=== PATIENT | male | born 1950 | race Caucasian/White ===

== ENCOUNTER 2016-12-05 21:13 | Emergency (ER) | payer MEDICARE, MEDICAID ==
[~2016-12-05] VITALS: Ht 177.8 cm; Wt 90.0 kg
[~2016-12-05 21:13] MED LIST: IBUP400T20 PO
[2016-12-05] MEDS ORDERED: TETANUS/DIPHTHERIA TOXOID ADULT 0.5 ML VIAL IM ONE (21:30)
[2016-12-05] MEDS ORDERED: SODIUM CHLORIDE 0.9% FLUSH 5 ML FLUSH IVF PRN (21:30)
[2016-12-05 21:32] VITALS: BP 164/72; PULSE 110; RESP 18; TEMP 98.9; O2SAT 99
--- NOTE | 2016-12-05 21:36 | PD ---
HPI Chief Complaint: Fall Time Seen by Provider: 21:19 Travel History International Travel<30 days: No Contact w/Intl Traveler<30days: No Traveled to known affect area: No History of Present Illness HPI 66-year-old male was brought in by EMS with history of head injury after he fell and injured the left side of his forehead. There was questionable LOC. Patient was significantly intoxicated. Bystanders called 911. He was brought in with a c-collar. Patient is significantly intoxicated with he is unable to give any history. He is talking but not making much sense. His head is bandaged. No other external injuries. He was tachycardic and hypertensive upon arrival. [facility] Past Medical History Narrative Medical List of his past medical, surgical, social and family history was reviewed from the nursing note. 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 Reported Meds & Prescriptions Reported Meds & Active Scripts Active No Active Prescriptions or Reported Medications Narrative Medication List of his home medications reviewed from the nursing note. Review of Systems Except as stated in HPI: all other systems reviewed are Neg Physical Exam Narrative GENERAL: Intoxicated, no obvious distress, C-collared SKIN: Warm and dry. Laceration on the left side of the forehead HEAD: Atraumatic. Normocephalic. EYES: Pupils equal and round. No scleral icterus. No injection or drainage. ENT: No nasal bleeding or discharge. Mucous membranes pink and moist. NECK: Trachea midline. No JVD. CARDIOVASCULAR: Regular rate and rhythm. No murmur appreciated. RESPIRATORY: No accessory muscle use. Clear to auscultation. Breath sounds equal bilaterally. GASTROINTESTINAL: Abdomen soft, non-tender, nondistended. Hepatic and splenic margins not palpable. MUSCULOSKELETAL: No obvious deformities. No clubbing. No cyanosis. No edema. NEUROLOGICAL: Moderately intoxicated. No obvious cranial nerve deficits. Motor grossly within normal limits. Normal speech. PSYCHIATRIC: Appropriate mood and affect; insight and judgment normal. Data Data Last Documented VS Vital Signs Date Time Temp Pulse Resp B/P Pulse Ox O2 Delivery O2 Flow Rate FiO2 12/06/16 03:00 100 16 128/69 98 Room Air 12/05/16 21:32 98.9 Orders Complete Blood Count With Diff (12/05/16 21:19) Prothrombin Time / Inr (Pt) (12/05/16 21:19) Act Partial Throm Time (Ptt) (12/05/16 21:19) Type And Screen (12/05/16 21:19) Ct Brain W/O Iv Contrast(Rout) (12/05/16 21:19) Ct Cerv Spine W/O Contrast (12/05/16 21:19) Iv Access Insert/Monitor (12/05/16 21:19) Ecg Monitoring (12/05/16 21:19) Oximetry (12/05/16 21:19) Oxygen Administration (12/05/16 21:19) Sodium Chloride 0.9% Flush (Ns Flush) (12/05/16 21:30) Comprehensive Metabolic Panel (12/05/16 21:19) Tetanus/Diphtheria Tox Adult (Tetanus/Di (12/05/16 21:30) Alcohol (Ethanol) (12/05/16 21:19) Lidocai-Epi 1%-1:100,000 Inj (Xylocaine- (12/05/16 21:45) Labs Laboratory Tests Test 12/05/16 20:50 White Blood Count 11.1 TH/MM3 Red Blood Count 4.90 MIL/MM3 Hemoglobin 14.7 GM/DL Hematocrit 43.9 % Mean Corpuscular Volume 89.5 FL Mean Corpuscular Hemoglobin 30.0 PG Mean Corpuscular Hemoglobin 33.5 % Concent Red Cell Distribution Width 14.3 % Platelet Count 248 TH/MM3 Mean Platelet Volume 8.1 FL Neutrophils (%) (Auto) 64.5 % Lymphocytes (%) (Auto) 27.4 % Monocytes (%) (Auto) 6.9 % Eosinophils (%) (Auto) 0.4 % Basophils (%) (Auto) 0.8 % Neutrophils # (Auto) 7.2 TH/MM3 Lymphocytes # (Auto) 3.0 TH/MM3 Monocytes # (Auto) 0.8 TH/MM3 Eosinophils # (Auto) 0.0 TH/MM3 Basophils # (Auto) 0.1 TH/MM3 CBC Comment DIFF FINAL Differential Comment Prothrombin Time 11.4 SEC Prothromb Time International 1.0 RATIO Ratio Activated Partial 26.1 SEC Thromboplast Time Sodium Level 140 MEQ/L Potassium Level 4.2 MEQ/L Chloride Level 102 MEQ/L Carbon Dioxide Level 26.5 MEQ/L Anion Gap 12 MEQ/L Blood Urea Nitrogen 7 MG/DL Creatinine 0.73 MG/DL Estimat Glomerular Filtration 107 ML/MIN Rate Random Glucose 105 MG/DL Calcium Level 8.5 MG/DL Total Bilirubin 0.1 MG/DL Aspartate Amino Transf 36 U/L (AST/SGOT) Alanine Aminotransferase 34 U/L (ALT/SGPT) Alkaline Phosphatase 82 U/L Total Protein 8.7 GM/DL Albumin 4.2 GM/DL Ethyl Alcohol Level 372 MG/DL Blood Type B POSITIVE Antibody Screen NEGATIVE Blood Bank Comment MDM Medical Decision Making Medical Screen Exam Complete: Yes Emergency Medical Condition: Yes Medical Record Reviewed: Yes Differential Diagnosis Intracranial bleed, cervical fracture Narrative Course 10:46 PM patient was given tetanus. The PA to care of the laceration. Please refer to his procedure note. Alcohol level is significantly high. He is here to sleep it off currently. Procedures EKG Prior to Arrival: No Diagnosis Primary Impression: Alcohol intoxication Qualified Code: F10.121 - Alcohol intoxication, with delirium Additional Impressions: Fall Qualified Code: W19.XXXA - Fall, initial encounter Head injury Qualified Code: S09.90XA - Head injury, initial encounter Facial laceration Qualified Code: S01.81XA - Facial laceration, initial encounter Scripts No Active Prescriptions or Reported Meds Charles Dyson MD Dec 05, 2016 21:36
--- NOTE | 2016-12-05 21:43 | RADRPT ---
EXAM DATE/TIME: 12/05/2016 21:29 [facility] COMPARISON: Report only CT BRAIN W/O CONTRAST, July 28, 2012, 13:10. INDICATIONS : Fall with head trauma. RADIATION DOSE: 28.89 CTDIvol (mGy) MEDICAL HISTORY : None SURGICAL HISTORY : Corneal transplant. Right shoulder surgery ENCOUNTER: Initial ACUITY: 1 day PAIN SCALE: 5/10 LOCATION: Bilateral cranial TECHNIQUE: Multiple contiguous axial images were obtained of the head. Using automated exposure control and adj ustment of the mA and/or kV according to patient size, radiation dose was kept as low as reasonably a chievable to obtain optimal diagnostic quality images. FINDINGS: CEREBRUM: The ventricles are normal for age. No evidence of midline shift, mass lesion, hemorrhage or acute in farction. No extra-axial fluid collections are seen. POSTERIOR FOSSA: The cerebellum and brainstem are intact. The 4th ventricle is midline. The cerebellopontine angle i s unremarkable. EXTRACRANIAL: The visualized portion of the orbits is intact. Left prosthetic eye. SKULL: The calvaria is intact. No evidence of skull fracture. CONCLUSION: No bleed or other acute intracranial abnormality. Mauri Palacios MD on December 05, 2016 at 21:40 Board Certified Radiologist. This report was verified electronically.
[2016-12-05] MEDS ORDERED: LIDOCAINE 1%/EPINEPHrine 1:100,000 SOLN 20 ML VIAL INFIL ONE (21:45)
--- NOTE | 2016-12-05 21:47 | RADRPT ---
EXAM DATE/TIME: 12/05/2016 21:29 [facility] COMPARISON: Report only CT CERVICAL SPINE W/O CONTRAST W 3D RECON, July 28, 2012, 13:10. INDICATIONS : Fall with head trauma and neck pain. RADIATION DOSE: 20.39 CTDIvol (mGy) MEDICAL HISTORY : None SURGICAL HISTORY : Corneal transplant. Right shoulder surgery. ENCOUNTER: Initial ACUITY: 1 day PAIN SCALE: 5/10 LOCATION: Bilateral neck TECHNIQUE: Volumetric scanning of the cervical spine was performed. Multiplanar reconstructions in the sagittal, coronal and oblique axial planes were performed. Using automated exposure control and adjustment o f the mA and/or kV according to patient size, radiation dose was kept as low as reasonably achievable to obtain optimal diagnostic quality images. FINDINGS: I. don't see an acute cortical break or trabecular disruption. Patient has chronic appearing endplate changes of C6, especially the inferior endplate. No subluxations. Other vertebral bodies have normal height. There is moderate disc space narrowing with uncovertebral and facet osteoarthritis at C4/C5 and C6/C7 . Milder findings are seen at the other levels. Epidural space and Juxtavertebral soft tissues are within normal limits. CONCLUSION: Chronic findings as above. No acute fracture or subluxation seen of the cervical spine. Mauri Palacios MD on December 05, 2016 at 21:43 Board Certified Radiologist. This report was verified electronically.
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
[2016-12-05 22:21] LABS: AUTOMATED NEUTROPHIL # 7.2 TH/MM3 (1.8-7.7); BASOPHIL # 0.1 TH/MM3 (0-0.2); BASOPHIL % 0.8 % (0.0-2.0); EOSINOPHIL % 0.4 % (0.0-4.0); HEMATOCRIT 43.9 % (39.0-51.0); HEMO FLAGS DIFF FINAL; LYMPH % 27.4 % (9.0-44.0); MEAN CELL VOLUME 89.5 FL (80.0-100.0); MEAN CORPUSCULAR HGB CONC 33.5 % (32.0-36.0); MONO % 6.9 % (0.0-8.0); NEUT % 64.5 % (16.0-70.0); PLATELET COUNT 248 TH/MM3 (150-450); RED CELL DISTRIBUTION WIDTH 14.3 % (11.6-17.2); WHITE BLOOD COUNT 11.1 TH/MM3 (4.0-11.0)
[2016-12-05 22:34] LABS: APTT (PATIENT) 26.1 SEC (24.3-30.1); PROTHROMBIN TIME - PATIENT 11.4 SEC (9.8-11.6)
[2016-12-05 22:45] LABS: ALKALINE PHOSPHATASE 82 U/L (45-117); ALT (GPT) 34 U/L (12-78); ANION GAP 12 MEQ/L (5-15); AST (GOT) 36 U/L (15-37); BICARBONATE 26.5 MEQ/L (21.0-32.0); BLOOD UREA NITROGEN 7 MG/DL (7-18); CHLORIDE 102 MEQ/L (98-107); GLOMERULAR FILTRATION RATE 107 ML/MIN (>89); POTASSIUM 4.2 MEQ/L (3.5-5.1); SODIUM (NA) 140 MEQ/L (136-145); TOTAL BILIRUBIN ADULT 0.1 MG/DL (0.2-1.0)
[2016-12-05 22:58] VITALS: BP 143/78; PULSE 100; RESP 18; O2SAT 99
[2016-12-06 03:00] VITALS: BP 128/69; PULSE 100; RESP 16; O2SAT 98
[2016-12-13] MEDS ORDERED: ASPI1TAB69 PO (08:51)
== END 2016-12-06 06:51 | disposition home or self-care (01) ==
LOC: NEPE 21:13 → NEPA 12-06 06:51
DX: S01.112A Laceration without foreign body of left eyelid and periocular area, initial encounter (principal); F10.121 Alcohol abuse with intoxication delirium; R00.0 Tachycardia, unspecified; I10 Essential (primary) hypertension; Z23 Encounter for immunization; Z72.0 Tobacco use; W19.XXXA Unspecified fall, initial encounter; Y99.8 Other external cause status
CPT/HCPCS: 12011; 70450; 72125; 80053; 80307; 85025; 85610; 85730; 86850; 86900; 86901; 90471; 90714

== ENCOUNTER → 2016-12-13 | Day surgery (SDC) | payer MEDICARE, MEDICAID ==
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
[~2016-12-13] VITALS: Ht 176.5 cm; Wt 83.8 kg
[~2016-12-13] MED LIST changes: +ACETAMINOPHEN 1000 MG/100 ML VIAL IV ONE; +ACETAMINOPHEN/HYDROcodone 325 MG/5 MG TAB ONE; +ACETAMINOPHEN/HYDROcodone 325 MG/5 MG TAB PO PRN; +ASPI1TAB69 PO; +BUPIVACAINE HCL PF 0.25% 30 ML VIAL ONE; +CHLORHEXIDINE GLUCONATE 4% SOLN 120 ML BTL TOP SCH; +DO NOT ADM ANY ANTICOAGULANT DRUGS XX PRN; +FAMOTIDINE 20 MG/2 ML VIAL ONE; -IBUP400T20 PO; +INSULIN HUMAN REGULAR 1,000 UNITS/10 ML VIAL SQ PRN; +KETOROLAC TROMETHAMINE 60 MG/2 ML (IM) VIAL IM ONE; +LACTATED RINGER'S 1000 ML IV SCH; +MEPERIDINE HCL 50 MG/ML VIAL IM PRN; +METOPROLOL TARTRATE 25 MG TAB PO PRN; +MIDAZOLAM HCL 2 MG/2 ML VIAL ONE; +ONDANSETRON HCL 4 MG/2 ML VIAL IV PUSH ONE; +ONDANSETRON ODT 4 MG TAB PO PRN; +PROPOFOL 200 MG/20 ML AMP IV ONE; +SODIUM CHLORID 0.9% 500 ML IV SCH; +ceFAZolin 2 GM PREMIX 50 ML IV SCH; +fentaNYL CITRATE 250 MCG/5 ML AMP ONE
[2016-12-13 08:56] VITALS: BP 167/96; PULSE 93; RESP 18; TEMP 98.2; O2SAT 98
[2016-12-13 09:14] LABS: AUTOMATED NEUTROPHIL # 3.9 TH/MM3 (1.8-7.7); BASOPHIL # 0.1 TH/MM3 (0-0.2); BASOPHIL % 0.9 % (0.0-2.0); EOSINOPHIL # 0.2 TH/MM3 (0-0.4); EOSINOPHIL % 2.9 % (0.0-4.0); HEMATOCRIT 37.1 % (39.0-51.0); HEMO FLAGS DIFF FINAL; LYMPH % 40.6 % (9.0-44.0); LYMPHOCYTE # 3.4 TH/MM3 (1.0-4.8); MEAN CELL VOLUME 90.1 FL (80.0-100.0); MEAN CORPUSCULAR HEMOGLOBIN 31.6 PG (27.0-34.0); MEAN CORPUSCULAR HGB CONC 35.1 % (32.0-36.0); MONO % 7.9 % (0.0-8.0); NEUT % 47.7 % (16.0-70.0); PLATELET COUNT 169 TH/MM3 (150-450); RED BLOOD COUNT 4.12 MIL/MM3 (4.50-5.90); RED CELL DISTRIBUTION WIDTH 14.1 % (11.6-17.2); WHITE BLOOD COUNT 8.3 TH/MM3 (4.0-11.0)
[2016-12-13 09:15] LABS: BLOOD, URINE NEG (NEG); GLUCOSE,URINE NEG (NEG); KETONE, URINE NEG (NEG); NITRITE,URINE NEG (NEG); URINE COLOR LIGHT-YELLOW (YELLW/STRAW)
[2016-12-13 09:20] LABS: COMMENT (UR) CULT NOT INDICATED; CULTURE IF INDICATED CULT NOT INDICATED
[2016-12-13 09:24] LABS: PROTHROMBIN TIME - PATIENT 10.9 SEC (9.8-11.6)
[2016-12-13 14:36] VITALS: BP 158/83; PULSE 83; RESP 20; TEMP 98.1; O2SAT 96
--- NOTE | 2016-12-17 11:53 | MP ---
cc: Dixie HERNANDEZ M.D. DATE OF SURGERY 12/13/2016 PREOPERATIVE DIAGNOSIS Internal derangement right knee. 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 SURGERY PERFORMED Arthroscopy, excision of torn posterior horn tear medial meniscus, ArthroCare shaving and chondroplasty of the medial femoral condyle chondromalacia and debridement of the remains of the ACL right knee. SURGEON Dr. Hernandez ANESTHESIA LMA ROOM SERVICE FOOD SERVICE ATTENDANT OSVALDO Cadet PROCEDURE The patient was brought to the operating room and placed on the operating room table in the supine position. After successful induction of general anesthesia, the patient's right leg was prepped and draped in the usual manner. The knee was then placed in a knee dixon and tightened. Arthroscopic examination was then performed by making a stab wound over the proximal superior and medial aspect of the patellofemoral joint for insertion of the inflow cannula and fluid, followed by stab wounds over the medial and lateral joint margins respectively for insertion of the arthroscope, shaver and probe. Arthroscopic examination was then performed which revealed a torn medial meniscus shaved smooth using ArthroCare System, he had grade 3 chondromalacia of the weight-bearing surface medial femoral condyle shaved smooth using the ArthroCare system and a torn anterior cruciate ligament debrided using the ArthroCare system. The rest the medial compartment found to be intact. The lateral compartment found to be intact. The patellofemoral joint found to be intact. The wound irrigated copiously lactated Ringer's solution. Meticulous hemostasis achieved. The skin approximated with interrupted 3-0 nylon suture. Wet and then dry dressing applied to wound followed by Xeroform gauze, sterile dressing, thigh-high Agustín wrap. No tourniquet utilized. Estimated blood loss 20 cc. Sponge and suture counts correct. The patient of procedure well and left the operating room in satisfactory condition. J. MD LUCAS Loya/ANANT /1:09 PM /11:43 AM
== END | disposition home or self-care (01) ==
LOC: HSDC 07:58
PROVIDERS: ATTEND Surgery
DX: S83.241A Other tear of medial meniscus, current injury, right knee, initial encounter (principal); S83.511A Sprain of anterior cruciate ligament of right knee, initial encounter; M94.261 Chondromalacia, right knee
CPT/HCPCS: 01400; 29881; 80048; 81001; 85025; 85610; 85730; E0113; J0131; J0690; J1885; J2250; J2405; J3010; J7120